=== PATIENT | male | born 1980 | race Caucasian/White ===

== ENCOUNTER 2021-03-31 08:17 | Emergency (ER) | payer OTHER | END 2021-03-31 09:20 | disposition home or self-care (01) | LOC: FB.ED 08:17 | DX: S05.02XA Injury of conjunctiva and corneal abrasion without foreign body, left eye, initial encounter (principal); H10.9 Unspecified conjunctivitis; E66.9 Obesity, unspecified; Z68.31 Body mass index [BMI] 31.0-31.9, adult; Z72.0 Tobacco use | CPT/HCPCS: 99283 ==